=== PATIENT | male | born 1995 | race Hispanic/Latino ===

== ENCOUNTER 2019-02-03 17:15 | Emergency (ER) | payer SELFPAY ==
[2019-02-03] MEDS ORDERED: IPRATROPIUM BROM 0.5MG/2.5ML ONE (17:41)
[2019-02-03] MEDS ORDERED: LEVALBUTEROL 1.25 MG/3 ML NEB ONE ×2 (17:41→19:16)
[2019-02-03] MEDS ORDERED: CEFTRIAXONE/SWI 1gm 2 GM/20 ML SYR ONE (17:42)
[2019-02-03] MEDS ORDERED: IBUPROFEN 400 MG TAB ONE (17:42)
[2019-02-03] MEDS ORDERED: NA CHLORIDE 0.9% 2,000 ML ONE (17:42)
[2019-02-03] MEDS ORDERED: HYDROCODONE/CHLORPHEN 5 ML/OSYR ONE (17:42)
[2019-02-03] MEDS ORDERED: AZITHROMYCIN IV 500 MG in NA CHLORIDE 0.9% 250 ML IVPB ONE (18:00)
[2019-02-03 18:13] LABS: Absolute Lymphocytes (CBC) 1.5 K/uL (0.7-4.9); Basophils % 0.3 % (0-1.3); Hematocrit 43.2 % (39.6-49.0); MPV 7.9 fL (7.6-11.3); RBC Red Blood Cell Count 5.45 M/uL (4.33-5.43)
[2019-02-03 18:17] LABS: Albumin 3.6 g/dL (3.4-5.0); Bilirubin Total 0.3 mg/dL (0.2-1.0); Protein, Total 8.2 g/dL (6.4-8.2)
--- NOTE | 2019-02-03 18:26 | EDPHYS ---
Physician Documentation [facility] Name: Génesis Estevez Age: 23 yrs Sex: Male : 1995 Arrival Date: 02/03/2019 Time: 17:17 Bed 14 Private MD: ED Physician Sudhir Hayes HPI: 02/03 17:35 This 23 yrs old Male presents to ER via Ambulatory with complaints of Cough, wilmer Chest Pain. 17:35 The patient or guardian reports airway noise, cough. Onset: The symptoms/episode wilmer began/occurred 7 day(s) ago. Severity of symptoms: At their worst the symptoms were mild, moderate, in the emergency department the symptoms are unchanged. Modifying factors: The symptoms are alleviated by nothing. Associated signs and symptoms: Pertinent positives: sore throat. The patient has not experienced similar symptoms in the past. Historical: - Allergies: 17:33 NKDA; tw2 17:33 No Known Drug Allergies; tw2 - Home Meds: 17:33 None [Active]; tw2 - PMHx: 17:33 None; tw2 - PSHx: 17:33 None; tw2 - Immunization history:: Adult Immunizations. - Social history:: Smoking status: . - Ebola Screening: : Patient denies travel to an Ebola-affected area in the 21 days before illness onset. ROS: 17:37 Eyes: Negative for injury, pain, redness, and discharge, ENT: Negative for injury, wilmer pain, and discharge, Neck: Negative for injury, pain, and swelling, Abdomen/GI: Negative for abdominal pain, nausea, vomiting, diarrhea, and constipation, Back: Negative for injury and pain, : Negative for injury, bleeding, discharge, and swelling, MS/Extremity: Negative for injury and deformity, Skin: Negative for injury, rash, and discoloration, Neuro: Negative for headache, weakness, numbness, tingling, and seizure, Psych: Negative for depression, anxiety, suicide ideation, homicidal ideation, and hallucinations, Allergy/Immunology: Negative for hives, rash, and allergies, Endocrine: Negative for neck swelling, polydipsia, polyuria, polyphagia, and marked weight changes, Hematologic/Lymphatic: Negative for swollen nodes, abnormal bleeding, and unusual bruising. 17:37 Constitutional: Positive for body aches, chills, fatigue, fever. 17:37 Cardiovascular: Positive for palpitations. 17:37 Respiratory: Positive for cough, shortness of breath. Exam: 17:37 Head/Face: Normocephalic, atraumatic. Eyes: Pupils equal round and reactive to light, wilmer extra-ocular motions intact. Lids and lashes normal. Conjunctiva and sclera are non-icteric and not injected. Cornea within normal limits. Periorbital areas with no swelling, redness, or edema. ENT: Nares patent. No nasal discharge, no septal abnormalities noted. Tympanic membranes are normal and external auditory canals are clear. Oropharynx with no redness, swelling, or masses, exudates, or evidence of obstruction, uvula midline. Mucous membranes moist. Neck: Trachea midline, no thyromegaly or masses palpated, and no cervical lymphadenopathy. Supple, full range of motion without nuchal rigidity, or vertebral point tenderness. No Meningismus. Chest/axilla: Normal chest wall appearance and motion. Nontender with no deformity. No lesions are appreciated. Abdomen/GI: Soft, non-tender, with normal bowel sounds. No distension or tympany. No guarding or rebound. No evidence of tenderness throughout. Back: No spinal tenderness. No costovertebral tenderness. Full range of motion. Male : Normal genitalia with no discharge or lesions. Skin: Warm, dry with normal turgor. Normal color with no rashes, no lesions, and no evidence of cellulitis. MS/ Extremity: Pulses equal, no cyanosis. Neurovascular intact. Full, normal range of motion. Neuro: Awake and alert, GCS 15, oriented to person, place, time, and situation. Cranial nerves II-XII grossly intact. Motor strength 5/5 in all extremities. Sensory grossly intact. Cerebellar exam normal. Normal gait. Psych: Awake, alert, with orientation to person, place and time. Behavior, mood, and affect are within normal limits. 17:37 Constitutional: The patient appears febrile. 17:37 Cardiovascular: Rate: tachycardic, Rhythm: regular, Pulses: Pulses are 4+ in bilateral radial, brachial, femoral, popliteal, posterior tibial and and dorsalis pedis arteries.. Heart sounds: normal, normal S1and S2, no S3 or S4, no murmur, no rub, no gallop, Edema: is not appreciated, JVD: is not appreciated. Vital Signs: 17:23 BP 133 / 121; Pulse 121; Resp 18; Temp 102.5(O); Pulse Ox 98% on R/A; Weight 90.72 kg tw2 (R); Height 5 ft. 10 in. (177.80 cm); Pain 8/10; 18:07 BP 132 / 61; Pulse 116; Resp 19; Pulse Ox 100% on Nebulizer Mask; tw2 19:15 Temp 99.6(O); jd3 19:53 BP 132 / 61; Pulse 99; Resp 19 S; Pulse Ox 100% on R/A; jd3 17:23 Body Mass Index 28.70 (90.72 kg, 177.80 cm) tw2 MDM: 17:19 Patient medically screened. [facility] 17:38 Data reviewed: vital signs, nurses notes, lab test result(s), radiologic studies, plain wilmer films. 02/03 17:52 Order name: Lactate; Complete Time: 18:23 [facility] 02/03 17:56 Order name: Comprehensive Metabolic Panel; Complete Time: 18:23 [facility] 02/03 17:35 Order name: Chest Pa And Lat (2 Views) XRAY [facility] 02/03 17:56 Order name: CBC with Automated Diff; Complete Time: 18:25 [facility] 02/03 17:56 Order name: Blood Culture [facility] 02/03 17:56 Order name: Blood Culture [facility] 02/03 18:55 Order name: INCENTIVE SPIROMETRY [facility] 02/03 17:46 Order name: EKG Electrocardiogram; Complete Time: 17:47 [facility] 02/03 17:55 Order name: IV Start; Complete Time: 17:55 [facility] 02/03 17:56 Order name: EKG - Nurse/Tech; Complete Time: 17:56 tw2 Administered Medications: 17:40 Drug: Rocephin 2 grams Route: IV; Rate: per protocol; Site: right antecubital; tw2 17:45 Follow up: IV Status: Completed infusion tw2 17:52 Follow up: Response: No adverse reaction; IV Status: Completed infusion tw2 17:45 Drug: Motrin 800 mg Route: PO; tw2 19:12 Follow up: Response: No adverse reaction tw2 17:45 Drug: NS 0.9% 1000 ml Route: IV; Rate: 1 bolus; Site: right antecubital; tw2 19:53 Follow up: Response: No adverse reaction; IV Status: Completed infusion; IV Intake: jd3 1000ml 17:45 Drug: NS 0.9% 1000 ml Route: IV; Rate: 1 bolus; Site: right antecubital; tw2 19:52 Follow up: Response: No adverse reaction; IV Status: Completed infusion; IV Intake: jd3 1000ml 17:46 Drug: Tussionex Pennkinetic ER 5 ml Route: PO; tw2 18:39 Follow up: Response: No adverse reaction; No change in condition tw2 17:51 Drug: Zithromax 500 mg Route: IVPB; Infused Over: 1 hrs; Site: right antecubital; tw2 19:53 Follow up: Response: No adverse reaction; IV Status: Completed infusion jd3 17:54 Drug: AtroVENT Aerosol 0.5 mg Route: Inhalation; tw2 19:00 Follow up: Response: No adverse reaction jd3 17:55 Drug: Xopenex 1.25 mg Route: Inhalation; tw2 19:00 Follow up: Response: No adverse reaction jd3 18:39 Drug: Augmentin 875 mg Route: PO; tw2 18:40 Follow up: Response: No adverse reaction tw2 19:22 Drug: Xopenex 1.25 mg Route: Inhalation; jd3 19:51 Follow up: Response: No adverse reaction jd3 19:22 Drug: Decadron - Dexamethasone 10 mg Route: IVP; Site: right antecubital; jd3 19:51 Follow up: Response: No adverse reaction [facility] Disposition: 02/03/19 18:26 Discharged to Home. Impression: Pneumonia due to other specified bacteria, Fever, unspecified, Cough. - Condition is Stable. - Discharge Instructions: Fever, Adult, Community-Acquired Pneumonia, Adult, Community-Acquired Pneumonia, Adult, [id number], Cough, Adult, [id number], Cough, Adult. - Prescriptions for Cheratussin AC 10- 100 mg/5 mL Oral liquid - take 10 milliliter by ORAL route every 4 hours; 160 milliliter. Zithromax 500 mg Oral Tablet - take 1 tablet by ORAL route once daily for 5 days; 5 tablet. Augmentin 875- 125 mg Oral Tablet - take 1 tablet by ORAL route every 12 hours for 10 days; 20 tablet. Albuterol Sulfate 90 mcg/actuation - inhale 1-2 puff by INHALATION route every 4-6 hours; 1 Inhaler. - Medication Reconciliation Form, Thank You Letter, Antibiotic Education, Prescription Opioid Use, Work release form, Family Work Release form. - Follow up: Private Physician; When: 2 - 3 days; Reason: Recheck today's complaints, Continuance of care, Re-evaluation by your physician. Follow up: Brice Holder MD; When: 2 - 3 days; Reason: Recheck today's complaints, Continuance of care, Re-evaluation by your physician. - Problem is new. - Symptoms have improved. Signatures: Dispatcher [employer] EDMS Sudhir Hayes MD MD cha Wise, Tara RN RN tw2 Gordon Watts RN RN jd3 Corrections: (The following items were deleted from the chart) 18:14 17:41 COMPREHENSIVE METABOLIC PANEL+C.LAB.BRZ ordered. [facility] 18:14 17:45 LACTATE+C.LAB.BRZ ordered. [facility] 18:26 17:41 CBC+H.LAB.BRZ ordered. [facility] 18:28 17:58 Chest Pa And Lat (2 Views) ordered. [facility] EDMS 19:58 18:26 02/03/2019 18:26 Discharged to Home. Impression: Pneumonia due to other specified jd3 bacteria; Fever, unspecified; Cough. Condition is Stable. Discharge Instructions: Fever, Adult, Community-Acquired Pneumonia, Adult, Community-Acquired Pneumonia, Adult, [id number], Cough, Adult, [id number], Cough, Adult. Prescriptions for Cheratussin AC 10-100 mg/5 mL Oral liquid - take 10 milliliter by ORAL route every 4 hours; 160 milliliter, Zithromax 500 mg Oral Tablet - take 1 tablet by ORAL route once daily for 5 days; 5 tablet. and Forms are Work release form, Family Work Release, Medication Reconciliation Form, Thank You Letter, Antibiotic Education, Prescription Opioid Use. Follow up: Private Physician; When: 2 - 3 days; Reason: Recheck today's complaints, Continuance of care, Re-evaluation by your physician. Follow up: Brice Holder; When: 2 - 3 days; Reason: Recheck today's complaints, Continuance of care, Re-evaluation by your physician. Problem is new. Symptoms have improved. wilmer
--- NOTE | 2019-02-03 18:26 | ER ---
Nurse's Notes [facility] Name: Génesis Estevez Age: 23 yrs Sex: Male : 1995 Arrival Date: 02/03/2019 Time: 17:17 Bed 14 Private MD: Diagnosis: Pneumonia due to other specified bacteria;Fever, unspecified;Cough Presentation: 02/03 17:24 Presenting complaint: Patient states: i have had cough and fever since Wednesday, the tw2 clinic gave me a shots for 3 days but i am not any better. Transition of care: patient was not received from another setting of care. Onset of symptoms was February 03, 2019. Risk Assessment: Do you want to hurt yourself or someone else? Patient reports no desire to harm self or others. Initial Sepsis Screen: Does the patient meet any 2 criteria? Temp <36.0*C (96.8*F)) or > 38.3*C (100.9*F). HR > 90 bpm. Yes Does the patient have a suspected source of infection? Yes: Productive cough/pneumonia. Care prior to arrival: None. 17:24 Method Of Arrival: Ambulatory tw2 17:24 Acuity: SARAH 3 tw2 Triage Assessment: 17:26 General: Appears in no apparent distress. Behavior is calm, cooperative, appropriate tw2 for age. Pain: Complains of pain in uvula, left aspect of posterior pharynx and right aspect of posterior pharynx. EENT: Reports pain when swallowing. Cardiovascular: Reports shortness of breath. Respiratory: Reports cough that is non-productive, dry, persistent since Wednesday. Historical: - Allergies: 17:33 NKDA; tw2 17:33 No Known Drug Allergies; tw2 - Home Meds: 17:33 None [Active]; tw2 - PMHx: 17:33 None; tw2 - PSHx: 17:33 None; tw2 - Immunization history:: Adult Immunizations. - Social history:: Smoking status: . - Ebola Screening: : Patient denies travel to an Ebola-affected area in the 21 days before illness onset. Screenin:30 Abuse screen: Denies threats or abuse. Nutritional screening: No deficits noted. tw2 Tuberculosis screening: No symptoms or risk factors identified. Fall Risk None identified. Assessment: 17:20 General: Appears in no apparent distress. Behavior is calm, cooperative, appropriate tw2 for age. Neuro: Level of Consciousness is awake, alert, obeys commands, Oriented to person, place, time, situation. Cardiovascular: Reports shortness of breath, Heart tones S1 S2 Patient's skin is warm and dry. Respiratory: Reports shortness of breath cough that is non-productive, persistent Airway is patent Respiratory effort is even, unlabored, Respiratory pattern is regular, symmetrical. GI: No signs and/or symptoms were reported involving the gastrointestinal system. : No signs and/or symptoms were reported regarding the genitourinary system. EENT: No signs and/or symptoms were reported regarding the EENT system. Derm: No signs and/or symptoms reported regarding the dermatologic system. Musculoskeletal: Range of motion: intact in all extremities. 17:34 Pain: Pain does not radiate. Pain began 2-3 days ago. tw2 18:07 Reassessment: Patient appears in no apparent distress at this time. No changes from tw2 previously documented assessment. Patient and/or family updated on plan of care and expected duration. Pain level reassessed. Patient is alert, oriented x 3, equal unlabored respirations, skin warm/dry/pink. 19:15 General: Appears in no apparent distress. uncomfortable, Behavior is calm, cooperative, jd3 appropriate for age. Pain: Complains of pain in chest and throat Quality of pain is described as aching, pressure. Neuro: Level of Consciousness is awake, alert, obeys commands, Oriented to person, place, time, situation. Cardiovascular: Capillary refill < 3 seconds Patient's skin is warm and dry. Respiratory: Reports shortness of breath cough that is Airway is patent Respiratory effort is even, unlabored, Respiratory pattern is regular, symmetrical. GI: No signs and/or symptoms were reported involving the gastrointestinal system. : No signs and/or symptoms were reported regarding the genitourinary system. EENT: No signs and/or symptoms were reported regarding the EENT system. Derm: Skin is intact, Skin is dry, Skin is normal, Skin temperature is warm. Musculoskeletal: Circulation, motion, and sensation intact. Range of motion: intact in all extremities. 19:55 Reassessment: Patient appears in no apparent distress at this time. Patient and/or jd3 family updated on plan of care and expected duration. Pain level reassessed. Patient is alert, oriented x 3, equal unlabored respirations, skin warm/dry/pink. incentive spirometer training done. pt demonstrated understanding of training. reported understanding of discharge instructions. even and steady gait upon discharge. Patient states feeling better. Vital Signs: 17:23 BP 133 / 121; Pulse 121; Resp 18; Temp 102.5(O); Pulse Ox 98% on R/A; Weight 90.72 kg tw2 (R); Height 5 ft. 10 in. (177.80 cm); Pain 8/10; 18:07 BP 132 / 61; Pulse 116; Resp 19; Pulse Ox 100% on Nebulizer Mask; tw2 19:15 Temp 99.6(O); jd3 19:53 BP 132 / 61; Pulse 99; Resp 19 S; Pulse Ox 100% on R/A; jd3 17:23 Body Mass Index 28.70 (90.72 kg, 177.80 cm) tw2 ED Course: 17:17 Patient arrived in ED. rg4 17:19 Sudhir Hayes MD is Attending Physician. wilmer 17:23 Sarah Burgos RN is Primary Nurse. tw2 17:24 Bed in low position. Call light in reach. night monitor on. Pulse ox on. NIBP on. tw2 17:26 Triage completed. tw2 17:26 Arm band placed on. tw2 17:27 EKG completed in triage. Results shown to MD. tw2 17:33 Patient maintains SpO2 saturation greater than 95% on room air. tw2 17:39 Initial lab(s) drawn, by ri, sent to lab. First set of blood cultures drawn by ri. 3 Inserted saline lock: 20 gauge in right antecubital area, using aseptic technique. Blood collected. 17:55 Second set of blood cultures drawn by ri. 3 18:25 Brice Holder MD is Referral Physician. [facility] 18:28 Chest Pa And Lat (2 Views) XRAY In Process Unspecified. EDMS 18:28 Awaiting radiology results. Awaiting: completion of IV abx, PRIOR to discharge. tw2 19:12 Report given to YAHAIRA Leslie. tw2 19:54 No provider procedures requiring assistance completed. IV discontinued, intact, jd3 bleeding controlled, No redness/swelling at site. Pressure dressing applied. Administered Medications: 17:40 Drug: Rocephin 2 grams Route: IV; Rate: per protocol; Site: right antecubital; tw2 17:45 Follow up: IV Status: Completed infusion tw2 17:52 Follow up: Response: No adverse reaction; IV Status: Completed infusion tw2 17:45 Drug: Motrin 800 mg Route: PO; tw2 19:12 Follow up: Response: No adverse reaction tw2 17:45 Drug: NS 0.9% 1000 ml Route: IV; Rate: 1 bolus; Site: right antecubital; tw2 19:53 Follow up: Response: No adverse reaction; IV Status: Completed infusion; IV Intake: jd3 1000ml 17:45 Drug: NS 0.9% 1000 ml Route: IV; Rate: 1 bolus; Site: right antecubital; tw2 19:52 Follow up: Response: No adverse reaction; IV Status: Completed infusion; IV Intake: jd3 1000ml 17:46 Drug: Tussionex Pennkinetic ER 5 ml Route: PO; tw2 18:39 Follow up: Response: No adverse reaction; No change in condition tw2 17:51 Drug: Zithromax 500 mg Route: IVPB; Infused Over: 1 hrs; Site: right antecubital; tw2 19:53 Follow up: Response: No adverse reaction; IV Status: Completed infusion jd3 17:54 Drug: AtroVENT Aerosol 0.5 mg Route: Inhalation; tw2 19:00 Follow up: Response: No adverse reaction jd3 17:55 Drug: Xopenex 1.25 mg Route: Inhalation; tw2 19:00 Follow up: Response: No adverse reaction jd3 18:39 Drug: Augmentin 875 mg Route: PO; tw2 18:40 Follow up: Response: No adverse reaction tw2 19:22 Drug: Xopenex 1.25 mg Route: Inhalation; jd3 19:51 Follow up: Response: No adverse reaction jd3 19:22 Drug: Decadron - Dexamethasone 10 mg Route: IVP; Site: right antecubital; jd3 19:51 Follow up: Response: No adverse reaction jd3 Intake: 19:52 IV: 1000ml; Total: 1000ml. jd3 19:53 IV: 1000ml; Total: 2000ml. jd3 Outcome: 18:26 Discharge ordered by . [facility] 19:55 Discharged to home ambulatory, with family. jd3 19:55 Condition: stable 19:55 Discharge instructions given to patient, family, Instructed on discharge instructions, follow up and referral plans. medication usage, Demonstrated understanding of instructions, follow-up care, medications, Prescriptions given X 4. 19:58 Patient left the ED. jd3 Signatures: Dispatcher [employer] EDUT Sudhir Hayes MD MD cha Wise, Tara, RN RN tw2 Deandra Baxter [facility] Gordon Watts, RN RN jd3
[2019-02-03] MEDS ORDERED: AMOX/K CLAV 875 MG TAB ONE (18:30)
--- NOTE | 2019-02-03 18:35 | RAD REPORT ---
EXAM DESCRIPTION: RAD - Chest Pa And Lat (2 Views) - 02/03/2019 6:26 pm CLINICAL HISTORY: Cough;Dyspnea Chest pain. COMPARISON: <Comparisons> FINDINGS: Moderate airspace opacity is seen in the right middle lobe most compatible with pneumonia. The heart is normal in size. No displaced fractures. IMPRESSION: Right middle lobe pneumonia.
[2019-02-03] MEDS ORDERED: dexAMETHasone 10 MG/ML VIAL ONE (19:16)
[2019-02-03 22:19] VITALS: BP 132/61; O2SAT 100
[2019-02-03 22:20] VITALS: TEMP 99.6
--- NOTE | 2019-02-05 12:49 | EKG ---
Test Date: 2019-02-03 Test Time: 17:26:07 Senior Applications Architect: ERI MEASUREMENT RESULTS: Intervals: Rate: 119 NM: 134 QRSD: 78 QT: 304 QTc: 427 [place]: P: 58 NM: 134 QRS: -11 T: 36 INTERPRETIVE STATEMENTS: Sinus tachycardia Otherwise normal ECG No previous ECG available for comparison Electronically Signed On 02-05-19 12:45:33 RAMP MANAGER by Jerry Skelton
== END 2019-02-03 19:58 | disposition home or self-care (01) ==
LOC: ER 17:15
DX: J18.9 Pneumonia, unspecified organism (principal); R50.9 Fever, unspecified
CPT/HCPCS: 36415; 71046; 80053; 83605; 85025; 87040; 87205; 93005; 96365; 96366; 96375; 99285; J0456; J0696; J1100; J7030

== ENCOUNTER 2019-06-06 12:32 | Emergency (ER) | payer SELFPAY ==
[2019-06-06] MEDS ORDERED: AMOX/K CLAV 875 MG TAB ONE (13:58)
--- NOTE | 2019-06-06 14:10 | EDPHYS ---
Physician Documentation [facility] Name: Génesis Estevez Age: 24 yrs Sex: Male : 1995 Arrival Date: 06/06/2019 Time: 12:35 Bed 23 Private MD: RAJAT Physician Sudhir Hayes HPI: 06/05 14:03 This 24 yrs old Male presents to ER via Ambulatory with complaints of Sore wilmer Throat. 14:03 The patient presents with sore throat. The patient describes throat pain as burning, wilmer constant. Onset: The symptoms/episode began/occurred 2 day(s) ago. Severity of symptoms: At their worst the symptoms were mild, in the emergency department the symptoms are unchanged. Modifying factors: The symptoms are alleviated by nothing. The patient has not experienced similar symptoms in the past. Historical: - Allergies: 13:05 NKDA; ss - Home Meds: 13:05 None [Active]; ss - PMHx: 13:05 None; ss - PSHx: 13:05 None; ss - Immunization history:: Adult Immunizations up to date. - Social history:: Smoking status: Patient denies any tobacco usage or history of. - Family history:: not pertinent. ROS: 14:03 Constitutional: Negative for fever, chills, and weight loss, Eyes: Negative for injury, wilmer pain, redness, and discharge, ENT: Negative for injury, pain, and discharge, Neck: Negative for injury, pain, and swelling, Cardiovascular: Negative for chest pain, palpitations, and edema, Respiratory: Negative for shortness of breath, cough, wheezing, and pleuritic chest pain, Back: Negative for injury and pain, : Negative for injury, bleeding, discharge, and swelling, MS/Extremity: Negative for injury and deformity, Skin: Negative for injury, rash, and discoloration, Neuro: Negative for headache, weakness, numbness, tingling, and seizure, Psych: Negative for depression, anxiety, suicide ideation, homicidal ideation, and hallucinations, Allergy/Immunology: Negative for hives, rash, and allergies, Endocrine: Negative for neck swelling, polydipsia, polyuria, polyphagia, and marked weight changes, Hematologic/Lymphatic: Negative for swollen nodes, abnormal bleeding, and unusual bruising. 14:03 Abdomen/GI: Negative for abdominal pain, nausea, vomiting, diarrhea, and constipation. 14:03 ENT: Positive for difficulty swallowing. 14:03 Abdomen/GI: Positive for Exam: 14:08 Constitutional: This is a well developed, well nourished patient who is awake, alert, wilmer and in no acute distress. Head/Face: Normocephalic, atraumatic. Eyes: Pupils equal round and reactive to light, extra-ocular motions intact. Lids and lashes normal. Conjunctiva and sclera are non-icteric and not injected. Cornea within normal limits. Periorbital areas with no swelling, redness, or edema. Neck: Trachea midline, no thyromegaly or masses palpated, and no cervical lymphadenopathy. Supple, full range of motion without nuchal rigidity, or vertebral point tenderness. No Meningismus. Chest/axilla: Normal chest wall appearance and motion. Nontender with no deformity. No lesions are appreciated. Cardiovascular: Regular rate and rhythm with a normal S1 and S2. No gallops, murmurs, or rubs. Normal PMI, no JVD. No pulse deficits. Respiratory: Lungs have equal breath sounds bilaterally, clear to auscultation and percussion. No rales, rhonchi or wheezes noted. No increased work of breathing, no retractions or nasal flaring. Abdomen/GI: Soft, non-tender, with normal bowel sounds. No distension or tympany. No guarding or rebound. No evidence of tenderness throughout. Back: No spinal tenderness. No costovertebral tenderness. Full range of motion. Male : Normal genitalia with no discharge or lesions. Skin: Warm, dry with normal turgor. Normal color with no rashes, no lesions, and no evidence of cellulitis. MS/ Extremity: Pulses equal, no cyanosis. Neurovascular intact. Full, normal range of motion. Neuro: Awake and alert, GCS 15, oriented to person, place, time, and situation. Cranial nerves II-XII grossly intact. Motor strength 5/5 in all extremities. Sensory grossly intact. Cerebellar exam normal. Normal gait. Psych: Awake, alert, with orientation to person, place and time. Behavior, mood, and affect are within normal limits. 14:08 ENT: Posterior pharynx: Airway: normal, no evidence of obstruction, Tonsils: with erythema, Uvula: normal, midline, non-edematous, no erythema, swelling, that is mild, erythema, that is mild, exudate, is not appreciated, peritonsillar mass, is not appreciated, pooling of secretions, is not appreciated. Vital Signs: 12:59 BP 133 / 71; Pulse 63; Resp 14; Temp 97.6(TE); Pulse Ox 99% on R/A; Weight 90.72 kg; Height 5 ft. 9 in. (175.26 cm); 14:34 BP 133 / 71; Pulse 63; Resp 14; Temp 97.6; Pulse Ox 99% ; Pain 4/10; ll1 12:59 Body Mass Index 29.53 (90.72 kg, 175.26 cm) MDM: 13:41 Patient medically screened. [facility] 14:08 Data reviewed: vital signs, nurses notes, lab test result(s). [facility] 06/05 13:05 Order name: Strep; Complete Time: 14:23 06/05 14:12 Order name: Throat Culture EDMS Administered Medications: 13:56 Drug: Augmentin 875 mg Route: PO; ll1 14:34 Follow up: Response: No adverse reaction; RASS: Alert and Calm (0) ll1 Disposition: 06/06/19 14:09 Discharged to Home. Impression: Acute pharyngitis, Fever, unspecified. - Condition is Stable. - Discharge Instructions: Fever, Adult, Pharyngitis, Pharyngitis, [id number], Sore Throat, [id number]. - Prescriptions for Amoxicillin 500 mg Oral Capsule - take 1 capsule by ORAL route every 8 hours for 10 days; 30 tablet. - Medication Reconciliation Form, Thank You Letter, Antibiotic Education, Prescription Opioid Use, Work release form form. - Follow up: Private Physician; When: 2 - 3 days; Reason: Recheck today's complaints, Continuance of care, Re-evaluation by your physician. - Problem is new. - Symptoms have improved. Signatures: Dispatcher [employer] EDMS Sudhir Hayes MD MD cha Smirch, Shelby, RN RN Paulette Murray RN RN ll1 Corrections: (The following items were deleted from the chart) 14:33 14:09 06/06/2019 14:09 Discharged to Home. Impression: Acute pharyngitis; Fever, ll1 unspecified. Condition is Stable. Forms are Medication Reconciliation Form, Thank You Letter, Antibiotic Education, Prescription Opioid Use. Follow up: Private Physician; When: 2 - 3 days; Reason: Recheck today's complaints, Continuance of care, Re-evaluation by your physician. Problem is new. Symptoms have improved. wilmer
--- NOTE | 2019-06-06 14:10 | ER ---
Nurse's Notes [facility] Name: Génesis Estevez Age: 24 yrs Sex: Male : 1995 Arrival Date: 06/06/2019 Time: 12:35 Bed 23 Private MD: Diagnosis: Acute pharyngitis;Fever, unspecified Presentation: 06/05 12:59 Chief complaint: Patient states: sore throat x 2 days. Denies fever. Coronavirus ss screen: The patient has NOT traveled to a country currently being monitored by the [facility] within the last 14 days. Proceed with normal triage procedures. Ebola Screen: Patient denies exposure to infectious person. Patient denies travel to an Ebola-affected area in the 21 days before illness onset. Initial Sepsis Screen: Does the patient meet any 2 criteria? No. Patient's initial sepsis screen is negative. Does the patient have a suspected source of infection? No. Patient's initial sepsis screen is negative. Risk Assessment: Do you want to hurt yourself or someone else? Patient reports no desire to harm self or others. 12:59 Method Of Arrival: Ambulatory ss 12:59 Acuity: SARAH 4 ss 13:51 Onset of symptoms was June 04, 2019. ll1 Historical: - Allergies: 13:05 NKDA; ss - Home Meds: 13:05 None [Active]; ss - PMHx: 13:05 None; ss - PSHx: 13:05 None; ss - Immunization history:: Adult Immunizations up to date. - Social history:: Smoking status: Patient denies any tobacco usage or history of. - Family history:: not pertinent. Screenin:51 Abuse screen: Denies threats or abuse. Nutritional screening: No deficits noted. ll1 Tuberculosis screening: No symptoms or risk factors identified. Fall Risk None identified. Total Puente Fall Scale indicates No Risk (0-24 pts). Assessment: 13:49 General: Appears in no apparent distress. Behavior is calm, cooperative. Pain: ll1 Complains of pain in throat. Neuro: No deficits noted. Cardiovascular: No deficits noted. Respiratory: No deficits noted. Denies cough. EENT: Throat is reddened Reports sore throat. Denies nasal congestion. 13:51 Respiratory: Airway is patent Trachea midline Respiratory effort is even, unlabored, ll1 Breath sounds are clear. Vital Signs: 12:59 BP 133 / 71; Pulse 63; Resp 14; Temp 97.6(TE); Pulse Ox 99% on R/A; Weight 90.72 kg; Height 5 ft. 9 in. (175.26 cm); 14:34 BP 133 / 71; Pulse 63; Resp 14; Temp 97.6; Pulse Ox 99% ; Pain 4/10; ll1 12:59 Body Mass Index 29.53 (90.72 kg, 175.26 cm) ED Course: 12:35 Patient arrived in ED. [id number] 13:04 Triage completed. 13:05 Arm band placed on right wrist. Patient placed in waiting room, Patient notified of wait time. 13:40 Sudhir Hayes MD is Attending Physician. wilmer 13:45 Paulette Constantino, YAHAIRA is Primary Nurse. ll1 13:52 Patient has correct armband on for positive identification. Allergy band placed. Bed in ll1 low position. Call light in reach. 14:33 No provider procedures requiring assistance completed. Patient did not have IV access ll1 during this emergency room visit. Administered Medications: 13:56 Drug: Augmentin 875 mg Route: PO; ll1 14:34 Follow up: Response: No adverse reaction; RASS: Alert and Calm (0) ll1 Outcome: 14:09 Discharge ordered by . wilmer 14:33 Discharged to home ambulatory. ll1 14:33 Condition: good 14:33 Discharge instructions given to patient, Instructed on discharge instructions, follow up and referral plans. Demonstrated understanding of instructions, follow-up care, medications, Prescriptions given X 1. 14:33 Patient left the ED. ll1 Signatures: Sudhir Hayes MD MD cha Smirch, Shelby, RN RN Deandra Coy [facility] Paulette Constantino RN RN 1
[2019-06-06 14:39] VITALS: BP 133/71; TEMP 97.6; O2SAT 99
== END 2019-06-06 14:33 | disposition home or self-care (01) ==
LOC: ER 12:32
DX: J02.9 Acute pharyngitis, unspecified (principal); R50.9 Fever, unspecified
CPT/HCPCS: 87070; 87081; 99283